=== PATIENT | male | born 1975 | race Caucasian/White ===

== ENCOUNTER 2016-10-02 13:08 | Emergency (ER) | payer OTHER | END 2016-10-02 15:10 | disposition home or self-care (01) | LOC: ER 13:08 | DX: G89.29 Other chronic pain (principal); M54.5 Low back pain; I10 Essential (primary) hypertension; E78.5 Hyperlipidemia, unspecified; F43.10 Post-traumatic stress disorder, unspecified; F17.200 Nicotine dependence, unspecified, uncomplicated; Z79.899 Other long term (current) drug therapy ==

== ENCOUNTER 2016-10-06 17:29 | Emergency (ER) | payer OTHER | END 2016-10-06 23:40 | disposition home or self-care (01) | LOC: ER 17:29 | DX: M54.5 Low back pain (principal); M79.604 Pain in right leg; I10 Essential (primary) hypertension; F43.10 Post-traumatic stress disorder, unspecified | CPT/HCPCS: 96372; J2270; J2550 ==